=== PATIENT | female | born 1970 | race Caucasian/White ===

== ENCOUNTER 2017-02-20 09:26 | Inpatient (IN) | payer OTHER ==
[~2017-02-20] VITALS: Ht 165.1 cm; Wt 74.6 kg
[2017-02-20] MEDS ORDERED: SODIUM CHLORIDE 0.9% 1,000 ML IV ONE (09:48)
[2017-02-20] MEDS ORDERED: SODIUM CHLORIDE 0.9% 1,000ML IVBOLUS ONE (10:00)
[2017-02-20] MEDS ORDERED: ONDANSETRON 2MG/ML, 2ML IVPush ONE (10:00)
[2017-02-20] MEDS ORDERED: SODIUM CHLORIDE FLUSH 10ML SYR IVF ONE (10:00)
[2017-02-20] MEDS ORDERED: HYDROmorphone 1 MG/ML, 1ML IVPush PRN (10:00)
[2017-02-20] MEDS ORDERED: HYDROmorphone 1 MG/ML, 1ML ONE (10:06)
[2017-02-20] MEDS ORDERED: ONDANSETRON 2MG/ML, 2ML ONE (10:06)
[2017-02-20 10:09] LABS: HEMATOCRIT 47.2 % (34.6-47.8); HEMOGLOBIN 16.2 g/dL (11.7-16.4); WHITE BLOOD COUNT 25.6 x10^3/uL (3.4-10)
[2017-02-20 10:21] LABS: ASPARTATE AMINO TRANSFERASE 22 U/L (15-37); BLOOD UREA NITROGEN 9 mg/dL (7-18)
[2017-02-20] MEDS ORDERED: OMNIPAQUE 350 MG/ML, 100ML BOTTLE ONE (11:04)
[2017-02-20] MEDS ORDERED: OXYcodone/APAP 5/325MG TABLET PO PRN (15:30)
[2017-02-20] MEDS ORDERED: HYDROmorphone 2 MG/ML, 1ML IVPush PRN (15:30)
[2017-02-20] MEDS ORDERED: ONDANSETRON 2MG/ML, 2ML IVPush PRN (15:30)
[2017-02-20 16:40] VITALS: BP 114/69
[2017-02-20 16:56] VITALS: BP 114/69
[2017-02-20] MEDS: ACETAMINOPHEN 325 MG TABLET PO PRN (17:12)
[2017-02-20] MEDS: AMPICILLIN/SULBACTAM 3 GM in SODIUM CHLORIDE 0.9% 100 ML IV SCH (18:13)
[2017-02-20 20:13] VITALS: BP 134/65
[2017-02-21 02:59] VITALS: BP_SYST 106; BP_SYST 98; BP_DIAS 65; BP_DIAS 76
[2017-02-21 05:03] LABS: HEMATOCRIT 40.8 % (34.6-47.8); WHITE BLOOD COUNT 14.7 x10^3/uL (3.4-10)
[2017-02-21] MEDS: AMPICILLIN/SULBACTAM 3 GM in SODIUM CHLORIDE 0.9% 100 ML IV SCH ×3 (06:05→12:12)
[2017-02-21] MEDS: ACETAMINOPHEN 325 MG TABLET PO PRN ×2 (06:09→12:12)
[2017-02-21 06:53] VITALS: BP 99/60
[2017-02-21 13:08] VITALS: BP 140/89
[2017-02-21] MEDS ORDERED: DOXY100C2 PO (15:56)
[2017-02-21] MEDS ORDERED: METR500T PO (15:58)
[2017-02-21] MEDS ORDERED: IBUP-1222 PO (15:58)
[2017-02-21 16:26] VITALS: BP 110/63
[2017-02-21 17:15] VITALS: BP 110/63
== END 2017-02-21 18:00 | disposition home or self-care (01) | DRG 872 ==
LOC: ED 10:34 → EDIP 14:48 → 4NOR 16:20
PROVIDERS: ADMIT Obstetrics & Gynecology; ATTEND Obstetrics & Gynecology
DX: A41.9 Sepsis, unspecified organism (principal); C57.4 Malignant neoplasm of uterine adnexa, unspecified; D25.9 Leiomyoma of uterus, unspecified; F12.90 Cannabis use, unspecified, uncomplicated; N83.9 Noninflammatory disorder of ovary, fallopian tube and broad ligament, unspecified; G89.29 Other chronic pain; Z80.3 Family history of malignant neoplasm of breast
CPT/HCPCS: 36415; 74177; 76830; 80053; 81003; 82378; 83605; 83690; 84703; 85025; 86304; 86336; 87040; 87210; 87491; 87591; 87808; 93005; 96361; 96374; J0295; J1170; J2405; Q9967; J7030

== ENCOUNTER → 2017-05-06 | Outpatient (CLI) | payer OTHER ==
[~2017-05-06] MED LIST: DOXY100C2 PO; IBUP-1222 PO; METR500T PO; None per pt
== END ==
LOC: STAR 14:08
PROVIDERS: ATTEND Specialist
DX: Z02.9 Encounter for administrative examinations, unspecified (principal)

== ENCOUNTER 2017-05-16 10:05 | Day surgery (SDC) | payer OTHER ==
[~2017-05-16] VITALS: Ht 165.1 cm; Wt 72.3 kg
[2017-05-16] MEDS ORDERED: LACTATED RINGERS 1,000 ML IV SCH (10:30)
[2017-05-16 10:33] LABS: HCG UR LOT HCG706132
[2017-05-16 10:37] LABS: HCG UR OBC PASS
[2017-05-16 10:59] VITALS: BP 115/79
[2017-05-16] MEDS ORDERED: BUPIVACAINE/PF 0.5% ONE (12:57)
[2017-05-16] MEDS ORDERED: ACETAMINOPHEN 325 MG TABLET PO PRN (14:00)
[2017-05-16] MEDS ORDERED: PROMETHAZINE 25 MG/ML, 1ML IV PRN (14:00)
[2017-05-16] MEDS ORDERED: HYDROmorphone 1 MG/ML, 1ML IV PRN (14:00)
[2017-05-16] MEDS ORDERED: ALBUTEROL/IPRATROPIUM 2.5MG/0.5MG, 3 ML NPPB PRN (14:00)
[2017-05-16] MEDS ORDERED: MEPERIDINE/PF 25MG/0.5ML IVPush PRN (14:00)
[2017-05-16] MEDS ORDERED: ONDANSETRON 2MG/ML, 2ML IVPush PRN (14:00)
[2017-05-16] MEDS ORDERED: LORazepam 2 MG/ML, 1ML IVPush PRN (14:00)
[2017-05-16] MEDS ORDERED: LABETALOL 5MG/ML, 20ML IV PRN (14:00)
[2017-05-16] MEDS ORDERED: OXYcodone 5 MG/5 ML ORAL.SOL UDC PO PRN (14:00)
[2017-05-16] MEDS ORDERED: FENTANYL PF 100 MCG/2ML IV PRN (14:00)
[2017-05-16] MEDS ORDERED: MIDAZOLAM 1 MG/ML, 2ML IV PRN (14:00)
[2017-05-16] MEDS ORDERED: DIAZEPAM 5 MG/ML, 2ML IVPush PRN (14:00)
[2017-05-16] MEDS ORDERED: hydrALAzine 20 MG/ML, 1ML IV PRN (14:00)
[2017-05-16] MEDS ORDERED: FENTANYL PF 250 MCG/5ML ONE (14:39)
[2017-05-16] MEDS ORDERED: MIDAZOLAM 1 MG/ML, 2ML ONE (14:39)
[2017-05-16] MEDS ORDERED: ONDANSETRON 2MG/ML, 2ML ONE (14:40)
[2017-05-16] MEDS ORDERED: GLYCOPYRROLATE 0.2MG/1ML, 5ML ONE (14:40)
[2017-05-16] MEDS ORDERED: LIDOCAINE GEL 2%, 5ML ONE (14:40)
[2017-05-16] MEDS ORDERED: ROCURONIUM 10 MG/ML,10ML ONE (14:40)
[2017-05-16] MEDS ORDERED: DEXAMETHASONE 4 MG/ML, 1ML ONE (14:40)
[2017-05-16] MEDS ORDERED: SUCCINYLCHOLINE 20 MG/ML, 10ML ONE (14:40)
[2017-05-16] MEDS ORDERED: PROPOFOL 10 MG/ML, 20ML ONE (14:40)
[2017-05-16] MEDS ORDERED: NEOSTIGMINE 1 MG/ML, 10ML ONE (14:40)
[2017-05-16] MEDS ORDERED: LIDOCAINE-MPF 2% ,5ML ONE (14:40)
[2017-05-16] MEDS ORDERED: CEFAZOLIN 1,000 MG ONE (14:40)
[2017-05-16] MEDS ORDERED: KETOROLAC 30 MG/1 ML ONE (14:41)
[2017-05-16] MEDS ORDERED: FENTANYL PF 100 MCG/2ML ONE (15:06)
[2017-05-16] MEDS ORDERED: HYDROmorphone 1 MG/ML, 1ML ONE (15:27)
[2017-05-16] MEDS ORDERED: MEPERIDINE/PF 50 MG/ML ONE (15:56)
== END 2017-05-16 18:15 ==
LOC: OUT 10:05
PROVIDERS: ATTEND Obstetrics & Gynecology Gynecologic Oncology
DX: K80.10 Calculus of gallbladder with chronic cholecystitis without obstruction (principal)
CPT/HCPCS: 36415; 47562; 71010; 81025; 85610; 85730; 86850; 86900; 86923; 88304; 88307; 88331; J0330; J0690; J1100; J1170; J1885; J2175; J2250; J2405; J2704; J2710; J3010; J3490; J7120; S2900

== ENCOUNTER 2019-04-02 10:48 | Emergency (ER) | payer OTHER ==
[~2019-04-02] VITALS: Ht 167.6 cm; Wt 75.0 kg
--- NOTE | 2019-04-02 11:04 | NUR ---
Pt ambulates to restroom from room with steady gait and balance with UA cup provided. NADN. No needs expressed.
--- NOTE | 2019-04-02 11:10 | NUR ---
UA sent to lab. Pt back to room and reconnected to NIBP cuff and continous pulse ox monitor. NADN. Call light within reach. No needs expressed.
--- NOTE | 2019-04-02 11:34 | NUR ---
Radiology called and notified [facility] that pt had x-rays that ED MD ordered done today at [facility]. EDMD aware. EDMD verbal order to cancel x-rays.
[2019-04-02 11:46] LABS: BASOPHILS # (AUTO) 0.12 x10^3/uL (0-0.1); BASOPHILS % (AUTO) 1 % (0-1); EOSINOPHILS # (AUTO) 0.08 x10^3/uL (0-0.4); EOSINOPHILS % (AUTO) 1 % (1-7); LYMPHOCYTES % (AUTO) 23 % (22-44); MD NO; MEAN CORPUSCULAR HEMOGLOBIN 31.6 pg (27.0-34.8); MEAN CORPUSCULAR HGB CONC 33.7 g/dL (32.4-35.8); MEAN CORPUSCULAR VOLUME 93.6 fL (80-100); MEAN PLATELET VOLUME 9.4 fL (7.4-10.4); MONOCYTES # (AUTO) 0.82 x10^3/uL (0.2-0.8); MONOCYTES % (AUTO) 6 % (2-9); NEUTROPHILS # (AUTO) 8.97 x10^3/uL (1.8-6.8); NEUTROPHILS % (AUTO) 69 % (42-75); PLATELET COUNT 328 x10^3/uL (130-400); RED BLOOD COUNT 4.94 x10^6/uL (3.82-5.3)
[2019-04-02 11:56] LABS: MICROSCOPIC NOT IND
[2019-04-02 11:58] LABS: CULTURE INDICATED? NO
[2019-04-02 11:59] LABS: ALANINE AMINOTRANSFERASE 19 U/L (12-78); ANION GAP 5 mmol/L (5-15); CALCIUM 9.2 mg/dL (8.5-10.1); CHLORIDE 109 mmol/L (98-107); CREATININE 1.18 mg/dL (0.55-1.02)
[2019-04-02 12:02] LABS: ALKALINE PHOSPHATASE 160 U/L (45-117); BILIRUBIN,TOTAL 0.6 mg/dL (0.2-1.0); TOTAL PROTEIN 7.6 g/dL (6.4-8.2)
[2019-04-02 12:41] VITALS: BP 126/70
--- NOTE | 2019-04-02 13:34 | NUR ---
Patient given discharge instructions and they have confirmed that they understand the instructions. Patient ambulatory with steady gait. Pt left with d/c paperwork, Rx, and all personal belongings. NADN. No needs expressed.
== END 2019-04-02 14:05 | disposition home or self-care (01) ==
LOC: ED 13:45
DX: R10.11 Right upper quadrant pain (principal); Z90.49 Acquired absence of other specified parts of digestive tract
CPT/HCPCS: 36415; 76700; 80053; 81003; 83690; 85025; 93005; 99284